=== PATIENT | male | born 1995 | race Caucasian/White ===

== ENCOUNTER → 2019-06-15 | Outpatient (CLI) | payer OTHER | LOC: COL.RAD 12:16 | DX: Q62.11 Congenital occlusion of ureteropelvic junction (principal); Q62.39 Other obstructive defects of renal pelvis and ureter | CPT/HCPCS: A9562; J1940 ==

== ENCOUNTER 2019-07-03 10:01 | Day surgery (SDC) | payer OTHER ==
[~2019-07-03] VITALS: Ht 180.3 cm; Wt 88.9 kg
[2019-07-03] MEDS ORDERED: ZANTAC 7575 MG PO (10:37)
[2019-07-03 10:53] VITALS: BP 128/67; PULSE 62; TEMP 97.7
--- NOTE | 2019-07-03 11:30 | NUR ---
Patient informed Margot RN that he ate chicken at [address] Gupta and Pardeep QUINTERO informed of this and surgery will be postponed to 1500. Informed patient why this needed to be postponed and patient voiced understanding of this. States that he forgot about eating the chicken when asked on admit of time last eaten.
--- NOTE | 2019-07-03 13:00 | NUR ---
Resting with eyes closed and IV infusing at 125cc/hr.
--- NOTE | 2019-07-03 14:00 | NUR ---
Continues to rest and awaits surgery.
--- NOTE | 2019-07-03 15:01 | NUR ---
Patient continues to rest with eyes closed.
[2019-07-03 18:30] VITALS: BP 121/71; PULSE 167; TEMP 98
[2019-07-03 18:33] VITALS: BP 121/71; PULSE 68
--- NOTE | 2019-07-03 19:07 | NUR ---
REPORT TO MARCELINA LLAMAS.
--- NOTE | 2019-07-03 20:01 | NUR ---
Pt discharge compelted. All questions asked and answered. Pt walked out by nursing staff.
== END 2019-07-03 20:02 | disposition home or self-care (01) ==
LOC: SDCO 10:01 → SURG 19:44 → SDCO 20:02
DX: N13.1 Hydronephrosis with ureteral stricture, not elsewhere classified (principal); K21.9 Gastro-esophageal reflux disease without esophagitis; F17.220 Nicotine dependence, chewing tobacco, uncomplicated; Z79.899 Other long term (current) drug therapy; Z87.448 Personal history of other diseases of urinary system
CPT/HCPCS: OP; C1769; J0690; J1100; J1170; J2405; J2704; J3010; J7120; Q9967

== ENCOUNTER → 2020-02-08 | Outpatient (CLI) | payer OTHER ==
[~2020-02-08] MED LIST: ZANTAC 7575 MG PO
== END ==
LOC: COL.RAD 11:25
DX: Q62.11 Congenital occlusion of ureteropelvic junction (principal); Q62.39 Other obstructive defects of renal pelvis and ureter
CPT/HCPCS: A9562; J1940

== ENCOUNTER 2020-03-19 05:50 | Day surgery (SDC) | payer OTHER ==
[~2020-03-19] VITALS: Ht 180.3 cm; Wt 93.4 kg
[2020-03-19] VITALS (7 sets, daily range): BP systolic 119–139; BP diastolic 60–82; PULSE 57–90; TEMP 97–98.4
[2020-03-19] MEDS ORDERED: TYLENOL 500MG500 MG PO (06:24)
--- NOTE | 2020-03-19 09:40 | NUR ---
The patient arrived back to [facility] from recovery room at this time. The patient reports feeling nauseated and requests to try some saltine crackers and sprite at this time. The patient's post operative vital signs were started at this time. Call light is within reach. Will continue to monitor the patient.
--- NOTE | 2020-03-19 09:55 | NUR ---
The patient appears to be tolerating the food and drink well. Vital signs appear stable. Will continue to monitor the patient.
[2020-03-19] MEDS ORDERED: PYRIDIUM 100MG100 MG PO (10:10)
--- NOTE | 2020-03-19 10:10 | NUR ---
The patient was able to eat two crackers and sip on some more sprite but reports feeling nauseated again. The patient requests to have an emesis bag with him in the bed "just in case". Will continue to monitor the patient.
[2020-03-19] MEDS ORDERED: NORCO 325 MG-51 TAB PO (10:11)
--- NOTE | 2020-03-19 10:25 | NUR ---
The patient continues to report feeling nauseated but denies wanting any PRN medication for it at this time. The patient does agree to try a cool wash cloth at this time. Vital signs appear stable. Call light is within reach. Will continue to monitor the patient.
--- NOTE | 2020-03-19 10:55 | NUR ---
The patient had an episode of a small amount of emesis at this time. The patient was given a PRN dose of Zofran 4 mg IV at this time. Will continue to monitor the patient.
--- NOTE | 2020-03-19 11:45 | NUR ---
Discharge instructions were reviewed with the patient at this time. He verbalized understanding and has no questions for the nurse at this time. The patient's IV to his left hand was removed and a pressure dressing was applied to the site. The nurse instructed the patient to get dressed and notify the staff when he is ready to be escorted out.
--- NOTE | 2020-03-19 12:05 | NUR ---
The patient was escorted out via wheelchair to a private vehicle by MURIEL Jones. The patient's belongings and discharge paperwork were sent with him. The patient's friend is present to drive him home. Will continue to monitor the patient.
== END 2020-03-19 12:05 | disposition home or self-care (01) ==
LOC: SDCO 05:50
DX: N13.1 Hydronephrosis with ureteral stricture, not elsewhere classified (principal); Z88.5 Allergy status to narcotic agent; F17.220 Nicotine dependence, chewing tobacco, uncomplicated
CPT/HCPCS: C1769; C1894; C2617; J0690; J1100; J1170; J1885; J2270; J2405; J2704; J3010; J7120; Q9967

== ENCOUNTER → 2020-10-01 | Outpatient (CLI) | payer OTHER ==
[~2020-10-01] MED LIST changes: +DITROPAN 5MG TAB5 MG PO; +MELATONIN5 M1 PO; +NORCO 325 MG-51 TAB PO; +PYRIDIUM 100MG100 MG PO; +TYLENOL 500MG500 MG PO
== END ==
LOC: COL.RAD 09-25 12:15
DX: Q62.11 Congenital occlusion of ureteropelvic junction (principal); Z98.890 Other specified postprocedural states
CPT/HCPCS: A9562; J1940

== ENCOUNTER → 2021-03-11 | Outpatient (CLI) | payer OTHER | LOC: COL.RAD 11:42 | DX: R10.11 Right upper quadrant pain (principal); R10.12 Left upper quadrant pain; Z96.0 Presence of urogenital implants | CPT/HCPCS: A9562; J1940 ==